=== PATIENT | female | born 1965 | race Caucasian/White ===

== ENCOUNTER → 2024-06-09 14:54 | Outpatient (REF) | payer OTHER, SELFPAY | LOC: HWWDC 14:54 | PROVIDERS: ATTENDING PHYSICIAN Family Medicine; REFERRING PHYSICIAN Obstetrics & Gynecology | DX: Z12.31 Encounter for screening mammogram for malignant neoplasm of breast (principal) | CPT/HCPCS: 77063; 77067 ==

== ENCOUNTER 2024-12-30 10:32 | Emergency (ER) | payer OTHER, SELFPAY ==
[2024-12-30 10:42] VITALS: BP 113/76
[2024-12-30 11:35] VITALS: BMI 23.9
--- NOTE | 2024-12-30 12:01 | ED.MUSCINJ ---
HPI-Injury
General
Chief Complaint: Fall
Source: patient
Exam Limitations: none
Time Seen by Provider: 12/30/24 11:47
History of Present Illness-Injury
Initial Injury comments:
59-year-old female riding her horse and horse suddenly stopped and she fell over the horse's head and flipped landing on her back. She complains of left rib posteriorly pain. She did not hit her head. No headache neck pain or back pain. She
notes pain with breathing but no shortness of breath or abdominal pain. She is not anticoagulated. She is healthy otherwise.
Past History
Past History
ED Past Medical History: Hypothyroidism
ED Past Surgical History: Orthopedic (L knee) and Other (c- section)
Social History
Tobacco: Non-smoker
Alcohol: None
Drug: None
Personal:
Living: with family
Employment: Employed ([employer])
Family History
Family History: Other (5by)
Phy Exam
Physical Exam
Physical Exam:
General: Well-appearing female no acute respiratory distress HEENT normocephalic atraumatic
Heart: Regular rate and rhythm
Lungs: Breath sounds heard throughout
Musculoskeletal exam: Left posterior lateral chest wall is tender without obvious step-off or ecchymosis or subcutaneous emphysema
Skin is intact no rash
Injury Course
Orders/Labs/Results
Orders:
Orders
12/30/24 10:46
Ribs, Left 3 View W/PA Chest CR [CR Ribs-left 3 Vw W/pa Chest] Urgent
Comment:
Reason For Exam: fall
12/30/24 11:59
Ibuprofen [Motrin] 600 mg PO NOW STA
Rx Incentive Spirometry [RESP] Urgent
Frequency: q1h while awake
MDM/Problems Addressed
Differential Diagnosis Includes:
Left posterior lateral chest wall pain after fall off horse. Consider contusion versus rib fracture versus pneumothorax
X-rays demonstrate mildly displaced 5th through 8th rib fractures on the left side. Patient is tolerating the pain quite well. Discussed various treatment options between treating at home and admission or transfer. She wishes to go home. She is
not big on pain medicine. Will start with Motrin but will prescribe a prescription of Percocet if needed. Return precautions were given. Spirometer was provided.
*Pulse Oximetry
SaO2: 98
Oxygen Mode of Delivery: Room air
Patient hypoxic: no
*Critical Care Note
Total Time (30-74mins, 75-104mins- exclusive of procedures): Not Applicable
ED Attending Note
-
Portions of this chart may have been created with voice recognition software.� Occasional wrong word or��sound alike� substitutions may have occurred due to the inherent limitations of voice recognition software.
Discharge Plan
Departure
Patient Disposition: Home (Routine Discharge)
Date of Disposition: 12/30/24
Time of Disposition: 12:03
Patient with high blood pressure during this ER visit?: No
Discharge Problem:
Fracture, ribs
Prescriptions:
New
ibuprofen 600 mg tablet
600 mg PO TID PRN (Reason: Pain) Qty: 20 0RF
oxycodone-acetaminophen [Percocet] 5-325 mg tablet
1 tab PO Q6HPRN PRN (Reason: pain) Qty: 10 0RF
No Action
levothyroxine [Synthroid] 137 MCG tablet
137 mcg PO DAILY
ondansetron 4 MG tablet,disintegrating
4 mg PO QIDPRN PRN (Reason: nausea/vomiting) Qty: 20 0RF
Referrals:
Shaylee Bello MD [Family Provider, Family Practice]
Activity Restrictions/Additional Instructions:
Avoid heavy lifting or twisting. Continue use of spirometer. Use medicine as needed for severe pain. Return here for fever shortness of breath or other concerning findings. Follow-up with family doctor otherwise
Interventions
Interventions:
*Risk Screen - Suicide Last Done: 12/30/24 10:42
*General Assessment Last Done: 12/30/24 11:35
*Neglect/Abuse Screening Last Done: 12/30/24 10:42
*ED- Fall Risk Assessment Last Done: 12/30/24 11:35
*ED COVID-19 Vaccine History Last Done: 12/30/24 11:35
ED-Musculoskeletal Assessment Last Done: 12/30/24 11:37
ED- Neurological Assessment Last Done: 12/30/24 11:37
Discharge Date and Time
Print Language: [place]
[2024-12-30] MEDS: MOTRIN 600 MG PO (12:20)
== END 2024-12-30 12:29 | disposition home or self-care (01) ==
LOC: EMR 10:32
PROVIDERS: EMERGENCY PHYSICIAN Emergency Medicine; FAMILY PHYSICIAN Family Medicine
DX: S22.42XA Multiple fractures of ribs, left side, initial encounter for closed fracture (principal); V80.010A Animal-rider injured by fall from or being thrown from horse in noncollision accident, initial encounter
CPT/HCPCS: 99283; 71101